=== PATIENT | male | born 1990 | race African-American/Black ===

== ENCOUNTER 2021-07-22 12:22 | Emergency (ER) | payer OTHER ==
[2021-07-22 13:20] VITALS: PULSE 95; RESP 18; TEMP 98.4
--- NOTE | 2021-07-22 13:55 | XR ---
EXAMINATION TYPE: XR shoulder complete RT DATE OF EXAM: 07/22/2021 COMPARISON: NONE HISTORY: Pain TECHNIQUE: Shoulder examined in 3 projections. FINDINGS: The humeral head articulates with the glenoid. The acromio-clavicular junction is normal. No acute fractures or dislocations are evident. A follow up study can be performed 7-10 days from acute trauma for continued pain. IMPRESSION: 1. Normal right Shoulder
[2021-07-22 14:58] VITALS: BP 159/111
--- NOTE | 2021-07-22 15:06 | ED ---
General Adult HPI - General Chief complaint: Extremity Injury, Upper Stated complaint: shoulder injury Time Seen by Provider: 07/22/21 14:47 Source: patient, RN notes reviewed Mode of arrival: ambulatory Limitations: no limitations - History of Present Illness Initial comments: Patient is a pleasant 30-year-old male presenting to the emergency Department with shoulder problems. Patient does have history of rotator cuff problems and previous dislocations. Patient fell last night and believes his shoulder was dislocated. Patient leaves the was able to get it back into position. Patient states only mild discomfort at this time that does increase with movement. Patient states this is a chronic problem. Patient only requests work note at this time however is receptive to receiving a sling. - Related Data Allergies Allergy/AdvReac Type Severity Reaction Status Date / Time No Known Allergies Allergy Verified 07/22/21 13:16 Review of Systems ROS Statement: Those systems with pertinent positive or pertinent negative responses have been documented in the HPI. ROS Other: All systems not noted in ROS Statement are negative. Constitutional: Denies: fever Eyes: Denies: eye pain ENT: Denies: ear pain Respiratory: Denies: cough, dyspnea Cardiovascular: Denies: chest pain Endocrine: Denies: fatigue Gastrointestinal: Denies: abdominal pain Genitourinary: Denies: dysuria Musculoskeletal: Reports: as per HPI Skin: Denies: rash Neurological: Denies: weakness Past Medical History Past Medical History: No Reported History History of Any Multi-Drug Resistant Organisms: None Reported Past Surgical History: No Surgical Hx Reported Past Psychological History: No Psychological Hx Reported Smoking Status: Current every day smoker Past Alcohol Use History: None Reported Past Drug Use History: None Reported General Exam Limitations: no limitations General appearance: alert, in no apparent distress Head exam: Present: atraumatic Eye exam: Present: normal appearance Neck exam: Absent: tenderness Respiratory exam: Present: normal lung sounds bilaterally Cardiovascular Exam: Present: regular rate, normal rhythm Expanded Peripheral pulses: 2+: Radial (R) GI/Abdominal exam: Present: soft. Absent: tenderness Extremities exam: Present: tenderness (Patient does have mild tenderness anterior shoulder.), other (Distal right extremity, upper is neurovascular intact). Absent: full ROM (Testing limited to patient discomfort) Neurological exam: Present: alert. Absent: motor sensory deficit Psychiatric exam: Present: normal affect, normal mood Course Vital Signs 07/22/21 07/22/21 13:16 14:57 Temperature 98.4 F Pulse Rate 95 Respiratory 18 Rate Blood Pressure 193/108 159/111 O2 Sat by Pulse 98 Oximetry Disposition Clinical Impression: Strain of shoulder Disposition: HOME SELF-CARE Condition: Stable Instructions (If sedation given, give patient instructions): Shoulder Dislocation (ED), Rotator Cuff Injury (ED), Shoulder Sprain (ED) Additional Instructions: Please follow-up with primary care physician in the next couple days for recheck. Have primary care physician review blood pressure. Please follow-up with orthopedics as well. Use sling as needed. Return for increased pain, worsening or changing symptoms or other concerns. Is patient prescribed a controlled substance at d/c from ED?: No Referrals: Pascual Funes MD [STAFF PHYSICIAN] - 1-2 days Mike Raman MD [Medical Doctor] - 1-2 days Time of Disposition: 15:05
== END 2021-07-22 15:39 | disposition home or self-care (01) ==
LOC: EC 12:22
DX: S46.819A Strain of other muscles, fascia and tendons at shoulder and upper arm level, unspecified arm, initial encounter (principal); F17.200 Nicotine dependence, unspecified, uncomplicated; W19.XXXA Unspecified fall, initial encounter
CPT/HCPCS: 99284